=== PATIENT | female | born 1940 | race Caucasian/White ===

== ENCOUNTER 2018-06-30 10:20 | Emergency (ER) | payer OTHER ==
[2018-06-30 10:33] VITALS: BP 168/80
--- NOTE | 2018-06-30 10:50 | EDPHY ---
H & P Time Seen by Provider: 06/30/18 10:39 HPI/ROS: CHIEF COMPLAINT: "I am here to see an ENT doctor" HISTORY OF PRESENT ILLNESS: 77-year-old female with no anticoagulant use history, lives in [facility], complaining of recurrent right-sided epistaxis for the past 1 week, has had packing x2 at [facility] and has had continued re-bleeding. Spoke with PCP who recommend she come to the ER to see and ENT provider. Denies dizziness. Denies headache. Denies nausea or vomiting. PHYSICAL EXAM (Prior to examination, patient consented to physical exam, hands were washed and my usual and customary physical exam procedures followed) 1) GENERAL: Well-developed, well-nourished, alert and oriented. Appears to be in no acute distress. 2) HEAD: Normocephalic 3) HEENT: sclera anicteric . Area of friability right Kiesselbach's plexus. Clot noted. No active bleeding. 4) LUNGS: Breathing comfortably. Smoking Status: Never smoked Constitutional: Initial Vital Signs Temperature (C) 36.5 C 06/30/18 10:30 Heart Rate 65 06/30/18 10:30 Respiratory Rate 18 06/30/18 10:30 Blood Pressure 168/80 H 06/30/18 10:30 O2 Sat (%) 94 06/30/18 10:30 O2 Delivery Mode Room Air Allergies/Adverse Reactions: No Known Allergies Allergy (Unverified 06/30/18 10:29) Home Medications: Medication Instructions Recorded Aspirin 81mg (*) 06/30/18 MDM/Departure - [facility] ED Course/Re-evaluation: 10:48 a.m.: I have evaluated the patient. She would like to see an ENT provider. She does not want packing. She wants to have this area cauterized. 10:51 a.m.: Phone consultation with JOSE Concepcion with [facility] who agrees to see the patient in the office today, although patient has been informed that she will have to wait in the office for a period of time. Patient has been given Afrin and nasal clip. Care of patient under supervision of secondary supervising physician Dr Sheldon with whom I discussed case. - Depart Disposition: Home, Routine, Self-Care Clinical Impression: Epistaxis, recurrent Condition: Good Instructions: Nosebleed (ED) Additional Instructions: Go directly to [facility]. They will see you at some point today. Referrals: Linda Concepcion PA [Physician Pediatric Physician Assistant] - 06/30/18 11:00 am
== END 2018-06-30 11:19 | disposition home or self-care (01) ==
DX: R04.0 Epistaxis (principal)